=== PATIENT | male | born 1985 | race Caucasian/White ===

== ENCOUNTER 2024-07-23 01:09 | Emergency (ER) | payer MEDICAID, SELFPAY ==
[2024-07-23 01:10] VITALS: BP 120/87; PULSE 80; RESP 18; TEMP 36.6; O2SAT 100; BMI 24.7
--- NOTE | 2024-07-23 01:48 | CT_ITS ---
STUDY: CT ABDOMEN AND PELVIS WITH CONTRAST REASON FOR EXAM: Male, 38 years old patient with abdominal pain. RADIATION DOSAGE (If Supplied By Facility): CTDIvol = ( 12.07 ) mGy, DLP = ( 578.29 ) mGycm TECHNIQUE: Transaxial images were obtained from the dome of the diaphragm to the symphysis pubis without oral contrast. 100 mL of IV Isovue-370 was administered. Sagittal and coronal images were reconstructed. Individualized dose optimization techniques were used for this CT. COMPARISON: None. FINDINGS: The visualized lung bases are unremarkable. The visualized portions of the heart are within normal limits. Normal liver. Normal gallbladder and extrahepatic biliary system. Normal spleen. Normal pancreas. Normal bilateral adrenal glands. Normal right kidney. Normal left kidney. Normal visualized stomach. There is dilated small bowel with a maximum transverse dimension of the abnormal small bowel measuring up to 4.1 cm. There is some enhancement of the echevarria of the abnormal small bowel as well as fluid filled. There is a transition within the central abdomen. The distal small bowel is not dilated. Minimal residual colon appears to be present. The patient appears to have had partial colon resection. There is non-visualization of the appendix. Normal abdominal aorta. There is venous distention of the inferior vena cava (IVC). Normal retroperitoneum. Urinary bladder wall is mildly thickened measuring approximately 6 mm in thickness. Normal visualized prostate gland. Normal abdominal wall. There is narrowing of L5-S1 disc space and vacuum disc phenomenon consistent with degenerative disc disease. There is mild retrolisthesis at L5-S1. There is abnormal attenuation within the subcapital regions of the femoral head suggesting sequela of avascular necrosis. There appears to be a bone cyst in the left femoral head. CT/Abdomen/Pelvis W IV Cont ONLY IMPRESSION: Findings are consistent with small bowel obstruction with transition occurring within the mid small bowel in the central abdomen. Electronically Signed: Lidia Benedict MD at 3:18 EST ,
[2024-07-23] MEDS: Ketorolac 30 MG/ML Syringe IV (02:01)
[2024-07-23] MEDS: Ondansetron 4 MG/2 ML Vial IV (02:01)
[2024-07-23] MEDS: 0.9% Normal Saline (1000mL) 1,000 ML 999 ML IV (02:02)
[2024-07-23 02:03] LABS: Absolute Lymphocyte Count 2.05 X10^3/uL (0.83-4.51); Absolute Neutrophil Count 6.7 X10^3/uL (2.0-7.7); Basophil# 0.02 X10^3/uL; Basophil% 0.2 % (0-1); Eosinophil# 0.12 X10^3/uL; Eosinophils% 1.3 % (0-5); Hematocrit 42.6 % (40-54); Hemoglobin 14.6 g/dL (13.0-16.5); Lymphocyte # 2.05 X10^3/ul (0.83-4.51); Lymphocyte % 21.8 % (19-41); Mean Corp Hgb Conc 34.3 g/dL (32-36); Mean Corpuscular Hgb 32.1 pg (27.0-32.0); Mean Corpuscular Volume 93.6 fL (80-94); Mean Platelet Vol. 9.1 fl (6.2-12.0); Monocyte# 0.49 X10^3/uL; Monocyte% 5.2 % (0-10); NRBC Flagged by Analyzer 0 % (0-5); Neutrophil # 6.72 X10^3/uL (2.7-7.7); Neutrophil % 71.3 % (47-70); Platelet Count 297 K/mm3 (150-450); RBC Distribution Width CV 12.7 % (11.6-14.6); RBC Distribution Width SD 43.6 fl (35.1-43.9); Red Blood Count 4.55 M/mm3 (4.6-6.2); White Blood Count 9.4 K/mm3 (4.4-11.0)
[2024-07-23 02:16] LABS: Alcohol, Blood (Medical)-Serum < 3.0 mg/dL
[2024-07-23 02:21] LABS: AST(SGOT) 13 U/L (15-37); Alanine Aminotransfer ALT/SGPT 18 U/L (16-61); Albumin, Serum 3.8 g/dL (3.2-5.0); Alkaline Phosphatase 79 U/L (45-117); Anion Gap 7 (5-15); BUN 8 mg/dL (7-18); BUN/Creat Ratio 6.9 RATIO (10-20); Bilirubin, Direct 0.21 mg/dL (0.00-0.30); Calcium,Total 9.7 mg/dL (8.5-10.1); Chloride 101 mmol/L (98-107); Creatinine, Serum 1.16 mg/dL (0.70-1.30); EST Glomerular Filtration Rate 74 mL/min (>60); Est Glom Filt Rate - Afr Amer 89 mL/min (>60); Globulin 3.5 g/dL (2.2-4.2); Glucose 120 mg/dL (74-106); Lipase 128 U/L (13-75); Potassium 3.4 mmol/L (3.5-5.1); Protein, Total 7.3 g/dL (6.4-8.2); Sodium Level 138 mmol/L (136-145)
[2024-07-23 03:07] LABS: Amphetamine Urine VISTA POSITIVE (<1000 ng/mL); Barbiturate Urine VISTA NEGATIVE (< 200 ng/mL); Benzodiazepine Urine VISTA NEGATIVE (< 200 ng/mL); Cocaine Urine VISTA NEGATIVE (< 300 ng/mL); Ecstacy Urine VISTA NEGATIVE (< 500 ng/mL); Methadone Urine VISTA NEGATIVE (< 300 ng/mL); PCP Urine VISTA NEGATIVE (< 25 ng/mL); THC Urine VISTA POSITIVE (< 50 ng/mL); Vista UDS pH Range 7
[2024-07-23 03:09] VITALS: BP 120/74; PULSE 94; RESP 16; O2SAT 99
[2024-07-23] MEDS: Oxymetazoline 0.05% 1 SPRAY SPRAY.BTL 2 SPRAY NASAL (03:51)
[2024-07-23] MEDS: Ketamine HCl 500 MG/5 ML Vial 80 MG IV (03:57)
--- NOTE | 2024-07-23 04:20 | RAD_ITS ---
STUDY: X-RAY - ABDOMEN/PELVIS REASON FOR EXAM: Male, 38 years old patient with nasogastric tube (NG) insertion. TECHNIQUE: Single AP view of the abdomen / pelvis. COMPARISON: None. FINDINGS: Visualized heart appears enlarged. A loop recorder is visible. There appears to be dilated bowel in the upper abdomen. The tip of enteric tube is visible in the left upper quadrant. There is no obvious organomegaly, mass, or pathologic calcifications. Contrast is visible in bilateral renal collecting systems secondary to recent enhanced CT. The pelvis is not imaged on this study. Normal visualized osseous structures. RAD/Abdomen Single View (Portable) IMPRESSION: Appropriate positioning of nasogastric tube. Electronically Signed: Lidia Benedict MD at 6:17 EST ,
[2024-07-23 05:00] VITALS: BP 112/75; PULSE 78; RESP 16; O2SAT 98
--- NOTE | 2024-07-23 05:24 | ED.RN ---
PT ACCEPTED [facility] [address]. BAJWA H5 BED [id number] [phone] [place] ETA 2-2.5 HRS
--- NOTE | 2024-07-23 05:26 | EDS_ITS ---
HPI History of Present Illness Chief Complaint: Abd Pain Informant: patient and EMS Narrative Narrative: Patient is a 38-year-old male with past medical history of colorectal cancer which required a colon resection with J-pouch reconstruction in 2007. He also has a history of nonischemic cardiomyopathy and polysubstance abuse. He was seen at [facility] in February of this year secondary abdominal pain and found to have a small bowel obstruction. At that time symptoms resolved with NG tube and decompression. Patient presents this evening by EMS with complaint of abdominal pain and nausea/vomit. He states that symptoms been present for 1 to 2 days. With concern for repeat obstruction he presents for evaluation [facility] Medical History Alcohol abuse Substance abuse Colon cancer Cardiomyopathy Home Medications ?Medication ?Instructions ?Recorded ?Last Taken ?Type loperamide 2 mg capsule 2 mg PO Q6H PRN diarrhea 07/23/24 Unknown History (Anti-Diarrheal (loperamide)) Allergy/AdvReac Type Severity Reaction Status Date / Time ciprofloxacin (From Cipro) Allergy Mild HIVES Verified 07/23/24 01:17 Social History Smoking Status: Former smoker ROS ROS ED Constitutional Constitutional ED: Denies chills or fever(s) ENT ENT ED: Denies sore throat Cardiovascular Cardiovascular: Denies chest pain Respiratory/Chest Respiratory/Chest: Denies cough or dyspnea Gastrointestinal Gastrointestinal: Reports abdominal pain, nausea and vomiting; Denies diarrhea Genitourinary Genitourinary ED: Denies dysuria Musculoskeletal Musculoskeletal: Denies myalgias Integumentary Denies rash Neurologic Neurologic: Denies headache(s) Hematologic/Lymphatic Hematologic/Lymphatic: Denies easy bleeding or easy bruising EXAM Physical Exam Const Vital Signs: 07/23/24 01:10 07/23/24 03:09 07/23/24 05:00 Temperature 97.9 F Temperature Source Oral Pulse Rate 80 94 78 Respiratory Rate 18 16 16 Blood Pressure 120/87 H 120/74 112/75 Blood Pressure Mean 98 89 87 Pulse Ox 100 99 98 Oxygen Delivery Method Room Air Room Air Room Air Positive well nourished and well developed General Appearance ED: well developed; Negative for pallor HEENT HEENT Narrative: Normocephalic atraumatic No tongue or lip swelling no oral lesions no airway edema or compromise Mucous membranes are mildly dry and tacky Eyes EOMs intact bilaterally Eyes Narrative: Pupils are pinpoint with minimal reaction to light General Eye ED: Negative for scleral icterus Neck supple Neck Narrative: No nuchal rigidity or meningeal signs Chest Wall palpation of chest normal Resp normal respiratory effort and clear to auscultation bilaterally Resp Narrative: No nasal flaring retractions tachypnea or accessory muscle use Cardio regular rate and regular rhythm Rate: other Other Details: Heart is regular rate and rhythm without murmurs rubs or gallops Radial and carotid pulses are equal and symmetric GI GI Narrative: Abdomen is slightly distended diffusely with hypoactive bowel sounds. There is mild pain diffusely with palpation but increased tympany noted around the upper mid abdomen. No pulsatile mass. No fluid wave. No rigidity or guarding. Auscultation: hypoactive bowel sounds Extremity normal to inspection Extremity Narrative: No asymmetric edema no pitting edema negative Homans' sign bilaterally Neuro CN's II-XII intact bilaterally Neuro Narrative: GCS of 14 Cranial nerves II through XII are grossly intact without focal neurologic deficit Sensorium / Orientation: orientation impaired Psych mental status grossly normal Psych Narrative: Patient has a depressed/flat affect Mood & Affect: depressed Skin no rashes or lesions noted General Skin Exam: Negative for jaundice or pallor MDM MDM MDM Narrative Medical decision making narrative: Patient arrived to the ER with stable vitals. He reports a history of colon cancer requiring colon resection as well as previous colostomy which was reversed. He also is a known history of SBO. With the patient having 1 to 2 days of generalized abdominal comfort with bouts of nausea and vomiting there is concern for viral stomach infection such as [place] virus versus rotavirus. There is concern for potential colitis versus pancreatitis versus biliary colic or acute cholecystitis. However most likely diagnosis is recurrent small bowel obstruction based on his past surgical history and the fact he has distention with under active bowel sound. Secondary to his basic lab work was obtained as well as a CT scan with IV contrast. CT scan showed a dilated small bowel with transition point consistent with SBO. However there is no abscess or perforation. Secondary to this NG tube was placed. As the patient does have a history of polysubstance abuse and has depressed mental status there was concern for illicit drug ingestion or alcohol use as well. Alcohol value was 0 and drug screen shows methamphetamines and cannabis. The case was discussed with our general surgeon Dr. Pal. He recommends based on the patient's significant surgical history and the fact he has been treated at an outside facility within the last year for the same event that he be transferred back there for continued care. Therefore the case was discussed with colorectal surgeon Dr. Olmedo who actually evaluated the patient at his last visit for the SBO and he agrees to accept the patient for transfer at this time. Plan of care was discussed with the patient and he is agreeable to it History & Record Review Discussion w/independent historian: EMS personnel and Patient Lab Data Attestation: I reviewed the patient's lab results. Labs: Laboratory Results - last 24 hr 07/23/24 07/23/24 01:15 02:50 WBC 9.4 RBC 4.55 L Hgb 14.6 Hct 42.6 MCV 93.6 MCH 32.1 H MCHC 34.3 RDW Std Deviation 43.6 RDW Coeff of Rupal 12.7 Plt Count 297 MPV 9.1 Immature Gran % (Auto) 0.200 Neut % (Auto) 71.3 H Lymph % (Auto) 21.8 Schleicher % (Auto) 5.2 Eos % (Auto) 1.3 Baso % (Auto) 0.2 Absolute Neuts (auto) 6.7 Absolute Lymphs (auto) 2.05 Nucleated RBC % 0 Sodium 138 Potassium 3.4 L Chloride 101 Carbon Dioxide 31.0 Anion Gap 7 BUN 8 Creatinine 1.16 Estim Creat Clear Calc 87.40 Est GFR (MDRD) Af Amer 89 Est GFR (MDRD) Non-Af 74 BUN/Creatinine Ratio 6.9 L Glucose 120 H Lactic Acid 2.0 Calcium 9.7 Total Bilirubin 0.60 Direct Bilirubin 0.21 AST 13 L ALT 18 Alkaline Phosphatase 79 Total Protein 7.3 Albumin 3.8 Globulin 3.5 Lipase 128 H Urine Opiates Screen NEGATIVE Urine Methadone Screen NEGATIVE Ur Barbiturates Screen NEGATIVE Ur Phencyclidine Scrn NEGATIVE Ur Amphetamines Screen POSITIVE H MDMA (Ecstasy) Screen NEGATIVE U Benzodiazepines Scrn NEGATIVE Urine Cocaine Screen NEGATIVE U Cannabinoids Screen POSITIVE H Ur Drug Screen Comment Ethyl Alcohol < 3.0 Radiography Diagnostic Testing: Clinical Impression(s) from Imaging Studies Abdomen/Pelvis CT 07/23/24 01:48 IMPRESSION: Findings are consistent with small bowel obstruction with transition occurring within the mid small bowel in the central abdomen. Electronically Signed: Lidia Benedict MD at 3:18 EST , Management Discussion w/another healthcare provider: [employer] Discharge Plan Triage Chief Complaint: Abd Pain ED Provider: [facility] Dx/Rx/DC Orders Clinical Impression: Small bowel obstruction, Polysubstance use disorder, Cardiomyopathy, nonischemic Prescriptions: No Action loperamide [Anti-Diarrheal (loperamide)] 2 mg capsule 2 mg PO Q6H PRN (Reason: diarrhea) Primary Care Provider: Care Physician,No Primary Referrals: Care Physician,No Primary [Primary Care Provider] - Print Language: Kazakh Disposition Disposition: Acute Care Hospital Discharge Location: [facility]
[2024-07-23 06:00] LABS: Reflex Lactate? Y
[2024-07-23 06:11] VITALS: BP 115/79; PULSE 99; RESP 16; TEMP 36.6; O2SAT 98
[2024-07-23 06:52] LABS: Lactic Acid 1.7 mmol/L (0.4-1.9)
== END 2024-07-23 07:13 | disposition short-term general hospital (02) ==
PROVIDERS: Emergency Provider Emergency Medicine; Visit Provider Emergency Medicine
DX: K56.609 Unspecified intestinal obstruction, unspecified as to partial versus complete obstruction (principal); F19.99 Other psychoactive substance use, unspecified with unspecified psychoactive substance-induced disorder; I42.8 Other cardiomyopathies; Z87.891 Personal history of nicotine dependence
CPT/HCPCS: 74018; 74177; 80048; 80076; 80307; 82077; 83605; 83690; 85025; 87631; 96361; 96374; 96375; 96376; 99285; Q9967; A4216; J2405